=== PATIENT | male | born 1960 | race Caucasian/White ===

== ENCOUNTER → 2018-09-30 10:51 | Outpatient (CLI) | payer OTHER, SELFPAY ==
[2018-08-27 13:05] VITALS: BMI 30.2
[2018-09-30 12:50] LABS: Hematocrit 46.4 % (40-54); Hemoglobin 16.3 g/dL (13.0-16.5); Mean Corp Hgb Conc 35.1 g/dL (32-36); Mean Corpuscular Hgb 33.5 pg (27.0-32.0); Mean Corpuscular Volume 95.5 fL (80-94); Mean Platelet Vol. 10.5 fl (6.2-12.0); Platelet Count 210 K/mm3 (150-450); RBC Distribution Width CV 11.9 % (11.6-14.6); RBC Distribution Width SD 41.3 fl (35.1-43.9); Red Blood Count 4.86 M/mm3 (4.6-6.2); White Blood Count 5.8 K/mm3 (4.4-11.0)
[2018-09-30 13:10] LABS: Anion Gap 3 (5-15); BUN 13 mg/dL (7-18); BUN/Creat Ratio 11.9 RATIO (10-20); Chloride 102 mmol/L (98-107); Creatinine, Serum 1.09 mg/dL (0.70-1.30); EST Glomerular Filtration Rate 74 mL/min (>60); Est Glom Filt Rate - Afr Amer 90 mL/min (>60); Glucose 93 mg/dL (74-106); PSA,Total - Annual Screen 5.56 ng/mL (0.00-4.00); Potassium 4.1 mmol/L (3.5-5.1); Sodium Level 136 mmol/L (136-145); Thyroid Stim Hormone (TSH) 2.18 uIU/mL (0.358-3.74)
== END ==
PROVIDERS: Family Provider Family Medicine; PCP Family Medicine; Referring Provider Nurse Practitioner Family; Visit Provider Nurse Practitioner Family
DX: Z00.00 Encounter for general adult medical examination without abnormal findings (principal); Z12.5 Encounter for screening for malignant neoplasm of prostate; I10 Essential (primary) hypertension
CPT/HCPCS: 36415; 80048; 84153; 84443; 85027; G0103

== ENCOUNTER → 2019-04-25 11:06 | Outpatient (CLI) | payer OTHER, SELFPAY ==
[2019-02-07 08:34] VITALS: BMI 31.4
[2019-04-25 12:41] LABS: Anion Gap 6 (5-15); BUN 12 mg/dL (7-18); BUN/Creat Ratio 12.3 RATIO (10-20); Calcium,Total 8.8 mg/dL (8.5-10.1); Chloride 102 mmol/L (98-107); Creatinine, Serum 0.98 mg/dL (0.70-1.30); EST Glomerular Filtration Rate 84 mL/min (>60); Est Glom Filt Rate - Afr Amer 102 mL/min (>60); Glucose 97 mg/dL (74-106); PSA,Total- Diagnostic 5.79 ng/mL (0.0-4.0); Potassium 4.1 mmol/L (3.5-5.1); Sodium Level 137 mmol/L (136-145)
== END ==
PROVIDERS: PCP Internal Medicine; Referring Provider Nurse Practitioner Family; Visit Provider Nurse Practitioner Family
DX: I10 Essential (primary) hypertension (principal); R97.20 Elevated prostate specific antigen [PSA]; N40.0 Benign prostatic hyperplasia without lower urinary tract symptoms
CPT/HCPCS: 36415; 80048; 84153

== ENCOUNTER → 2019-08-22 14:25 | Outpatient (CLI) | payer OTHER, SELFPAY ==
[2019-08-22 13:57] VITALS: BMI 31.4
[2019-08-22 16:12] LABS: Cholesterol 189 mg/dL (200); High Density Lipoprotein 37 mg/dL; Triglycerides 200 mg/dL; Very Low Density Lipoprotein 40 mg/dL (5-40)
== END ==
PROVIDERS: PCP Internal Medicine; Referring Provider Nurse Practitioner Family; Visit Provider Nurse Practitioner Family
DX: I10 Essential (primary) hypertension (principal)
CPT/HCPCS: 36415; 80061

== ENCOUNTER → 2020-02-25 10:23 | Outpatient (CLI) | payer OTHER, SELFPAY ==
[2020-02-25 12:45] LABS: Hematocrit 45.9 % (40-54); Hemoglobin 16.1 g/dL (13.0-16.5); Mean Corp Hgb Conc 35.1 g/dL (32-36); Mean Corpuscular Hgb 33.1 pg (27.0-32.0); Mean Corpuscular Volume 94.4 fL (80-94); Mean Platelet Vol. 10.1 fl (6.2-12.0); Platelet Count 212 K/mm3 (150-450); RBC Distribution Width SD 41.7 fl (35.1-43.9); Red Blood Count 4.86 M/mm3 (4.6-6.2)
[2020-02-25 12:55] LABS: ALB/GLOB Ratio 1.3 RATIO (0.9-2.4); AST(SGOT) 37 U/L (15-37); Alanine Aminotransfer ALT/SGPT 86 U/L (16-61); Albumin, Serum 4.2 g/dL (3.2-5.0); Alkaline Phosphatase 60 U/L (45-117); Anion Gap 5 (5-15); BUN 14 mg/dL (7-18); BUN/Creat Ratio 13.7 RATIO (10-20); Calcium,Total 8.9 mg/dL (8.5-10.1); Chloride 105 mmol/L (98-107); Cholesterol 201 mg/dL (200); Creatinine, Serum 1.02 mg/dL (0.70-1.30); EST Glomerular Filtration Rate 80 mL/min (>60); Est Glom Filt Rate - Afr Amer 96 mL/min (>60); Globulin 3.3 g/dL (2.2-4.2); Glucose 82 mg/dL (74-106); High Density Lipoprotein 38 mg/dL; Potassium 4.4 mmol/L (3.5-5.1); Protein, Total 7.5 g/dL (6.4-8.2); Sodium Level 138 mmol/L (136-145); Thyroid Stim Hormone (TSH) 1.93 uIU/mL (0.358-3.74); Triglycerides 310 mg/dL; Very Low Density Lipoprotein 62 mg/dL (5-40)
== END ==
PROVIDERS: PCP Internal Medicine; Referring Provider Nurse Practitioner Family; Visit Provider Nurse Practitioner Family
DX: I10 Essential (primary) hypertension (principal); F41.9 Anxiety disorder, unspecified; N40.0 Benign prostatic hyperplasia without lower urinary tract symptoms
CPT/HCPCS: 36415; 80053; 80061; 84153; 84443; 85027

== ENCOUNTER → 2020-08-20 15:43 | Outpatient (CLI) | payer OTHER, SELFPAY ==
[2020-08-20 15:29] VITALS: BMI 31.4
[2020-08-20 18:00] LABS: Cholesterol 160 mg/dL (200); High Density Lipoprotein 39 mg/dL; PSA,Total - Annual Screen 4.48 ng/mL (0.00-4.00); Triglycerides 216 mg/dL; Very Low Density Lipoprotein 43 mg/dL (5-40)
== END ==
PROVIDERS: PCP Internal Medicine; Referring Provider Physician Assistant; Visit Provider Physician Assistant
DX: E78.5 Hyperlipidemia, unspecified (principal); R97.20 Elevated prostate specific antigen [PSA]
CPT/HCPCS: 36415; 80061; 84153; G0103

== ENCOUNTER 2021-03-04 16:17 | Outpatient (CLI) | payer OTHER, SELFPAY ==
[2021-03-04 16:57] LABS: Absolute Lymphocyte Count 2.55 X10^3/uL (0.83-4.51); Absolute Neutrophil Count 4.1 X10^3/uL (2.0-7.7); Basophil# 0.05 X10^3/uL; Basophil% 0.7 % (0-1); Eosinophil# 0.08 X10^3/uL; Eosinophils% 1.1 % (0-5); Hematocrit 42.3 % (40-54); Hemoglobin 14.8 g/dL (13.0-16.5); Lymphocyte # 2.55 X10^3/ul (0.83-4.51); Lymphocyte % 34.8 % (19-41); Mean Corpuscular Hgb 33.2 pg (27.0-32.0); Mean Corpuscular Volume 94.8 fL (80-94); Mean Platelet Vol. 10.2 fl (6.2-12.0); Monocyte# 0.57 X10^3/uL; Monocyte% 7.8 % (0-10); NRBC Flagged by Analyzer 0 % (0-5); Neutrophil # 4.05 X10^3/uL (2.7-7.7); Neutrophil % 55.3 % (47-70); Platelet Count 198 K/mm3 (150-450); RBC Distribution Width SD 41.6 fl (35.1-43.9); Red Blood Count 4.46 M/mm3 (4.6-6.2); White Blood Count 7.3 K/mm3 (4.4-11.0)
[2021-03-04 17:57] LABS: ALB/GLOB Ratio 1.3 RATIO (0.9-2.4); AST(SGOT) 55 U/L (15-37); Alanine Aminotransfer ALT/SGPT 94 U/L (16-61); Albumin, Serum 4.2 g/dL (3.2-5.0); Alkaline Phosphatase 69 U/L (45-117); Anion Gap 6 (5-15); BUN 13 mg/dL (7-18); BUN/Creat Ratio 12.6 RATIO (10-20); Calcium,Total 9.3 mg/dL (8.5-10.1); Chloride 103 mmol/L (98-107); Cholesterol 128 mg/dL (200); Creatinine, Serum 1.03 mg/dL (0.70-1.30); EST Glomerular Filtration Rate 78 mL/min (>60); Est Glom Filt Rate - Afr Amer 95 mL/min (>60); Globulin 3.3 g/dL (2.2-4.2); Glucose 94 mg/dL (74-106); High Density Lipoprotein 29 mg/dL; PSA,Total- Diagnostic 7.11 ng/mL (0.0-4.0); Protein, Total 7.5 g/dL (6.4-8.2); Sodium Level 137 mmol/L (136-145); Thyroid Stim Hormone (TSH) 2.99 uIU/mL (0.358-3.74); Triglycerides 369 mg/dL; Very Low Density Lipoprotein 74 mg/dL (5-40)
[2021-03-04 18:14] LABS: Vitamin D,25 Hydroxy 13.8 ng/mL
== END 2021-03-04 23:59 | disposition short-term general hospital (02) ==
LOC: BIMLAB 16:18
PROVIDERS: Physician Assistant; PCP Internal Medicine; Referring Provider Nurse Practitioner Family; Visit Provider Nurse Practitioner Family
DX: Z00.00 Encounter for general adult medical examination without abnormal findings (principal); N40.0 Benign prostatic hyperplasia without lower urinary tract symptoms; F41.9 Anxiety disorder, unspecified; I10 Essential (primary) hypertension; G47.10 Hypersomnia, unspecified
CPT/HCPCS: 36415; 80053; 80061; 82306; 84153; 84443; 85025

== ENCOUNTER → 2021-05-30 | Outpatient (CLI) | payer OTHER, SELFPAY ==
--- NOTE | 2021-05-30 09:31 | US_ITS ---
STUDY: ABDOMINAL ULTRASOUND - RIGHT UPPER QUADRANT REASON FOR VISIT: Male, 61 years old elevated lfts TECHNIQUE: Ultrasound evaluation of the right upper quadrant was performed with real-time and static singer-scale imaging. TECHNICAL QUALITY: Adequate. COMPARISON: None. FINDINGS: Liver: The liver measures 15.9 cm. There is increased echogenicity consistent with fatty infiltration. The bile ducts are within normal limits. There is hepatic color flow. The direction of portal flow is hepatopetal. There is no demonstrated mass lesion. Gallbladder: Normal distended gallbladder. The gallbladder wall measures 1.7 mm. There is a negative sonographic Whiting''s sign. There is no pericholecystic fluid. There are no gallstones. Common Bile Duct (C.B.D.): The common bile duct measures 3.8 mm. Pancreas: Normal appearance of the visualized pancreatic head, body, and tail. Right Kidney: Normal size of the right kidney. The right kidney measures 11.1 x 6.1 x 6.2 cm. Normal renal cortex. The right cortex measures 1.5 cm. There is no demonstrated renal mass or cyst. There is no right hydronephrosis. US/Liver IMPRESSION: 1. Diffuse hepatic steatosis. No masses. 2. No other acute findings. Electronically Signed: Juan M Baxter, at 10:34 EDT ,
== END | disposition home or self-care (01) ==
PROVIDERS: PCP Nurse Practitioner Family; Referring Provider Nurse Practitioner Family; Visit Provider Nurse Practitioner Family
DX: K76.0 Fatty (change of) liver, not elsewhere classified (principal)
CPT/HCPCS: 76705

== ENCOUNTER → 2021-07-07 | Outpatient (CLI) | payer OTHER, SELFPAY ==
--- NOTE | 2021-07-07 | IMM_PTH ---
PATIENT: Nitesh OHARA LOC: [facility] U#:[id number] AGE/SX: 61/M ROOM: RE07/07/[address]: Dr. Darwin Lake MD : 1960 BED: DIS: 07/07/2021 SPEC #: [id number] RECD: 07/11/21 10:26 STATUS: LUDWIN REQ #: [id number] PIOTR: 07/07/21 00:[address]: Darwin Lake DEPT: IMMUNOHISTOCHEMISTRY RECD BY: Mary Gold ENTERED: 07/11/21 10:27 SP TYPE: IMMUNO OTHR DR: Bandar Dawson, FLUXER-C Tissues: B - PROSTATE RIGHT Procedures: P40 (add) 34BE12 (initial) PHYSICIAN & INSTITUTION [place] [id number] SPECIMEN INFORMATION: Tissue Source: B - Right prostate, apex, core biopsy Clinical Info: Elevated PSA Specimen Number: [id number] CPT code: 94466, 34889 METHODOLOGY: Deparaffinized sections of prefer/formalin-fixed tissue or PAP/DQ stained slides are incubated with monoclonal/polyclonal antibodies/oligonucleotide probes. Localization is made via biotin free immunoperoxidase method. Appropriate controls are performed and reacted as expected. Results on target cell population are indicated in the following table: RESULTS: ANTIBODY / CLONE RESULT Block B P40 (BC28) positive 34BE12 (34BE12) positive These tests were developed and their performance characteristics determined by [facility]. They may not have been cleared or approved by the U.[place]. Food and Drug Administration. The FDA has determined that such clearance or approval is not necessary. The above immunohistochemical/dualISH markers are ordered and reviewed by the Pathologist. INTERPRETATION: B. Right prostate, apex, core biopsy: Negative for malignancy. SJ:kee 07/12/2021 Case has been reviewed in consultation with Dr. Mathew who concurs with the above diagnosis. IDC:AM
--- NOTE | 2021-07-07 08:00 | PROSBIL_PTH ---
PATIENT: Nitesh OHARA LOC: [facility] U#:[id number] AGE/SX: 61/M ROOM: RE07/07/[address]: Dr. Darwin Lake MD : 1960 BED: DIS: 07/07/2021 SPEC #: [id number] RECD: 07/07/21 16:56 STATUS: LUDWIN REJose #: [id number] PIOTR: 07/07/21 08:[address]: Darwin Lake DEPT: SURGICAL PATHOLOGY RECD BY: Karey Bunch ENTERED: 07/08/21 09:45 SP TYPE: PROST BX LYUDMILA DR: Bandar Dawson, KATARINA Tissues: A - PROSTATE RIGHT B - PROSTATE RIGHT C - PROSTATE RIGHT D - PROSTATE LEFT E - PROSTATE LEFT F - PROSTATE LEFT Procedures: PROSTATE BX HEADER OPERATION: Prostate biopsy PRE-OP DIAGNOSIS: Elevated PSA TISSUE SUBMITTED: A - Right base, B - Right apex, C - Right mid, D - Left apex, E - Left base, F - Left mid MICROSCOPIC DIAGNOSIS A. Right prostate, base, core biopsy: Prostatic tissue, negative for malignancy. Focal acute and chronic inflammation. B. Right prostate, apex, core biopsy: Prostatic tissue, negative for malignancy. Focal acute and chronic inflammation. See comment. C. Right prostate, mid, core biopsy: Prostatic tissue, negative for malignancy. Focal acute and chronic inflammation. D. Left prostate, apex, core biopsy: Prostatic tissue, negative for malignancy. Focal acute and chronic inflammation. E. Left prostate, base, core biopsy: Prostatic tissue, negative for malignancy. F. Left prostate, mid, core biopsy: Prostatic tissue, negative for malignancy. Focal acute and chronic inflammation. SJ:kee 07/11/2021 COMMENT B. Immunohistochemistry ([id number]) supports the above diagnosis. This case has been reviewed in consultation with Dr. Mathew who concurs with the above diagnosis. MICROSCOPIC DESCRIPTION Slides are reviewed. GROSS DESCRIPTION A - Received is one container designated prostate, right base. The specimen consists of two elongated fragments of light guillen-white soft tissue each measuring 1.5 cm in length and 0.1 cm in diameter. The specimen is totally submitted in one cassette. B - Received is one container designated prostate, right apex. The specimen consists of two elongated fragments of light guillen-white soft tissue each measuring 1.5 cm in length and 0.1 cm in diameter. The specimen is totally submitted in one cassette. C - Received is one container designated prostate, right mid. The specimen consists of two elongated fragments of light guillen-white soft tissue each measuring 1.5 cm in length and 0.1 cm in diameter. The specimen is totally submitted in one cassette. D - Received is one container designated prostate, left apex. The specimen consists of two elongated fragments of light guillen-white soft tissue each measuring 1 cm in length and 0.1 cm in diameter. The specimen is totally submitted in one cassette. E - Received is one container designated prostate, left base. The specimen consists of two elongated fragments of light guillen-white soft tissue each measuring 1 cm in length and 0.1 cm in diameter. The specimen is totally submitted in one cassette. F - Received is one container designated prostate, left mid. The specimen consists of two elongated fragments of light guillen-white soft tissue each measuring 1 cm in length and 0.1 cm in diameter. The specimen is totally submitted in one cassette. / AM:kee 07/08/2021 TC:3 CPT: 63045 x6
== END | disposition home or self-care (01) ==
PROVIDERS: PCP Nurse Practitioner Family; Visit Provider Urology
DX: R97.20 Elevated prostate specific antigen [PSA] (principal)
CPT/HCPCS: 88305; 88341; 88342; G0416

== ENCOUNTER → 2022-03-30 | Outpatient (CLI) | payer OTHER, SELFPAY ==
[2022-03-30 12:53] LABS: PSA,Total- Diagnostic 6.38 ng/mL (0.0-4.0)
== END | disposition home or self-care (01) ==
LOC: BIMLAB 11:31
PROVIDERS: PCP Nurse Practitioner Family; Referring Provider Urology; Visit Provider Urology
DX: R97.20 Elevated prostate specific antigen [PSA] (principal)
CPT/HCPCS: 36415; 84153

== ENCOUNTER → 2022-08-24 | Outpatient (CLI) | payer OTHER, SELFPAY | END | disposition home or self-care (01) | PROVIDERS: PCP Nurse Practitioner Family; Referring Provider Nurse Practitioner Family; Visit Provider Nurse Practitioner Family | DX: G47.10 Hypersomnia, unspecified (principal) | CPT/HCPCS: 95806 ==

== ENCOUNTER → 2023-05-30 | Outpatient (CLI) | payer OTHER, SELFPAY ==
[2023-05-30 12:48] LABS: Absolute Lymphocyte Count 1.44 X10^3/uL (0.83-4.51); Absolute Neutrophil Count 3.5 X10^3/uL (2.0-7.7); Basophil# 0.05 X10^3/uL; Basophil% 0.9 % (0-1); Eosinophil# 0.07 X10^3/uL; Eosinophils% 1.3 % (0-5); Hematocrit 43.3 % (40-54); Hemoglobin 15.1 g/dL (13.0-16.5); Lymphocyte # 1.44 X10^3/ul (0.83-4.51); Mean Corp Hgb Conc 34.9 g/dL (32-36); Mean Corpuscular Hgb 32.8 pg (27.0-32.0); Mean Corpuscular Volume 94.1 fL (80-94); Mean Platelet Vol. 10.5 fl (6.2-12.0); Monocyte# 0.46 X10^3/uL; Monocyte% 8.3 % (0-10); NRBC Flagged by Analyzer 0 % (0-5); Neutrophil % 63.1 % (47-70); Platelet Count 203 K/mm3 (150-450); RBC Distribution Width CV 11.8 % (11.6-14.6); RBC Distribution Width SD 40.7 fl (35.1-43.9); White Blood Count 5.5 K/mm3 (4.4-11.0)
[2023-05-30 13:12] LABS: ALB/GLOB Ratio 1.4 RATIO (0.9-2.4); AST(SGOT) 49 U/L (15-37); Alanine Aminotransfer ALT/SGPT 66 U/L (16-61); Albumin, Serum 4.4 g/dL (3.2-5.0); Alkaline Phosphatase 64 U/L (45-117); Anion Gap 4 (5-15); BUN 19 mg/dL (7-18); BUN/Creat Ratio 19.5 RATIO (10-20); Calcium,Total 9.2 mg/dL (8.5-10.1); Chloride 104 mmol/L (98-107); Cholesterol 101 mg/dL (200); Creatinine, Serum 0.98 mg/dL (0.70-1.30); EST Glomerular Filtration Rate 83 mL/min (>60); Est Glom Filt Rate - Afr Amer 100 mL/min (>60); Globulin 3.1 g/dL (2.2-4.2); Glucose 98 mg/dL (74-106); High Density Lipoprotein 43 mg/dL; Potassium 3.9 mmol/L (3.5-5.1); Protein, Total 7.5 g/dL (6.4-8.2); Sodium Level 136 mmol/L (136-145); Thyroid Stim Hormone (TSH) 1.59 uIU/mL (0.358-3.74); Triglycerides 109 mg/dL; Very Low Density Lipoprotein 22 mg/dL (5-40)
[2023-05-30 13:15] LABS: Vitamin B12 380 pg/mL (211-911); Vitamin D,25 Hydroxy 23.2 ng/mL
[2023-05-30 13:25] LABS: Hemoglobin A1c 5.1 % (3.8-5.6)
== END | disposition home or self-care (01) ==
LOC: BIMLAB 10:35
PROVIDERS: PCP Nurse Practitioner Family; Visit Provider Nurse Practitioner Family
DX: I10 Essential (primary) hypertension (principal); E56.9 Vitamin deficiency, unspecified
CPT/HCPCS: 36415; 80053; 80061; 82306; 82607; 83036; 84443; 85025